=== PATIENT | female | born 1970 | race Caucasian/White ===

== ENCOUNTER 2024-04-21 00:34 | Inpatient (IN) | payer MEDICARE, MEDICAID ==
[~2024-04-21] VITALS: Ht 152.4 cm; Wt 73.6 kg
[2024-04-21] VITALS (10 sets, daily range): BP systolic 128–140; BP diastolic 59–63; TEMP 96.1–98.2; O2SAT 90–98
[2024-04-21] MEDS ORDERED: BUPR-597 PO (01:00)
[2024-04-21] MEDS ORDERED: ROPI1TAB73 PO (01:00)
[2024-04-21] MEDS ORDERED: CILO100T3 PO (01:00)
[2024-04-21] MEDS ORDERED: HUMA100I5 SC (01:00)
[2024-04-21] MEDS ORDERED: DULO1CAP6 PO (01:00)
[2024-04-21] MEDS ORDERED: POTA-150 PO (01:00)
[2024-04-21] MEDS ORDERED: ECOT81TA5 PO (01:00)
[2024-04-21] MEDS ORDERED: FENO160T10 PO (01:00)
[2024-04-21] MEDS ORDERED: LEVOTAB10 PO (01:00)
[2024-04-21] MEDS ORDERED: NEUR300C PO (01:00)
[2024-04-21] MEDS ORDERED: TOUJ300I2 SC (01:00)
[2024-04-21] MEDS ORDERED: ATOR80TA59 PO (01:00)
[2024-04-21] MEDS ORDERED: NEUR600T PO (01:00)
[2024-04-21] MEDS ORDERED: LISI5TAB11 PO (01:00)
[2024-04-21] MEDS ORDERED: EZET10TA21 PO (01:00)
[2024-04-21 01:33] LABS: BASO # 0.1 10^3/uL (0.0-0.2); BASO % 0.9 % (0.0-1.0); EOS # 0.1 10^3/uL (0.0-0.5); EOS % 1.2 % (0.0-3.0); HEMATOCRIT 38.6 % (36.0-47.0); HEMOGLOBIN 13.5 g/dl (12.0-15.5); LYMPH # 1.9 10^3/uL (1.5-5.0); LYMPH % 27.9 % (24.0-44.0); MEAN CORPUSCULAR HEMOGLOBIN 30.3 pg (27.0-33.0); MEAN CORPUSCULAR VOLUME 86.7 fl (80.0-96.0); MONO # 0.6 10^3/uL (0.0-0.8); MONO % 8.8 % (2.0-8.0); NEUTROPHILS # 4.2 10^3/uL (1.5-8.5); NEUTROPHILS % 60.5 % (36.0-66.0); PLATELET COUNT, AUTOMATED 469 10^3/uL (150-450); RED BLOOD COUNT 4.45 10^6/uL (4.00-5.40); WHITE BLOOD COUNT 6.9 10^3/uL (4.0-10.0)
[2024-04-21 01:59] LABS: LIPASE 160 U/L (12-53)
[2024-04-21 01:59] LABS: VENOUS BASE EXCESS 1.7 (-2.0-2.0); VENOUS HCO3 27.4 MMOL/L (23.0-27.0); VENOUS O2 SATURATION 63.3 % (60.0-80.0); VENOUS PARTIAL PRESSURE CO2 47.3 mmHg (38.0-50.0); VENOUS PH 7.381 UNITS (7.330-7.430); VENOUS STANDARD HCO3 25.1 MMOL/L; VENOUS TOTAL CO2 28.9 MMOL/L (24.0-28.0)
[2024-04-21] MEDS: KETOROLAC 30 MG/ML 1ML VIAL IV ONE (02:06)
[2024-04-21] MEDS: ONDANSETRON 4MG 2ML VIAL IV ONE (02:06)
[2024-04-21 02:19] LABS: ALBUMIN 2.6 G/DL (3.2-5.2); ALKALINE PHOSPHATASE 123 U/L (35-104); ALT/SGPT 16 U/L (7.0-40); AST/SGOT < 8 U/L (<34); BILIRUBIN,DIRECT < 0.1 MG/DL (<0.4); BILIRUBIN,TOTAL 0.2 MG/DL (0.3-1.2); BLOOD UREA NITROGEN 10 MG/DL (9-23); CALCIUM LEVEL 9.4 MG/DL (8.5-10.1); CARBON DIOXIDE LEVEL 26 MMOL/L (20-31); CHLORIDE LEVEL 94 MMOL/L (98-107); CREATININE FOR GFR 0.34 MG/DL (0.55-1.30); GLOMERULAR FILTRATION RATE > 60.0 (>51); POTASSIUM SERUM 3.8 MMOL/L (3.5-5.1); SODIUM LEVEL 128 MMOL/L (136-145); TOTAL PROTEIN 7.1 G/DL (5.7-8.2)
[2024-04-21] MEDS: NS 1,000 ML IV ONE (02:20)
[2024-04-21 02:26] LABS: OSMOLALITY SERUM 319 MOSM/KG (275-295)
[2024-04-21 02:30] LABS: CK-MB VALUE MASS < 1.0 NG/ML (<3.6)
[2024-04-21 02:35] LABS: CPK CREATINE PHOSPHOKINASE 35 U/L (34-145); MB/CK RELATIVE INDEX 2.85 (< OR =4)
[2024-04-21 02:36] LABS: GLUCOSE, FASTING 519 MG/DL (60-100)
[2024-04-21] MEDS ORDERED: ISOVUE-370 76% 100ML VIAL As Ordered ONE (02:39)
[2024-04-21] MEDS: POTASSIUM CHLORIDE 10MEQ SR TABLET PO ONE (02:44)
[2024-04-21] MEDS: HumuLIN R (REGULAR) INSULIN (NovoLIN R) **100U/ML** PER UNIT IV ONE (02:44)
[2024-04-21 02:45] LABS: ACETONE/KETONE 0.33 MMOL/L (0.02-0.27)
[2024-04-21 03:09] LABS: HEMOGLOBIN A1c > 14.0 % (4.0-6.0)
[2024-04-21] MEDS: methylPREDNISolone 125MG 2ML VIAL IV ONE (03:10)
[2024-04-21] MEDS: diphenhydrAMINE 50MG/ML VIAL IV ONE (03:10)
[2024-04-21] MEDS ORDERED: ASPI81CH33 PO (05:01)
[2024-04-21] MEDS ORDERED: HOME MED LIST COMPLETE! XX SCH (05:05)
[2024-04-21] MEDS ORDERED: DEXTROSE 50% 50ML SYRINGE IV PRN ×2 (05:35→08:45)
[2024-04-21] MEDS ORDERED: GLUCAGON INJ 1MG VIAL SC PRN ×2 (05:35→08:45)
[2024-04-21] MEDS ORDERED: MAALOX 30 ML SUSP *UDC PO PRN (05:35)
[2024-04-21] MEDS ORDERED: ACETAMINOPHEN 325 MG TAB PO PRN (05:35)
[2024-04-21] MEDS ORDERED: GLUCOSE 4 GM CHEW PO PRN ×2 (05:35→08:45)
[2024-04-21] MEDS: INSULIN LISPRO (NovoLOG) PER UNIT SC SCH ×4 (06:13→20:16)
[2024-04-21] MEDS: KCL 20MEQ in NS 1000ML 1,000 ML IV SCH (06:13)
[2024-04-21 06:27] LABS: CHOLESTEROL LEVEL 974 MG/DL (<200); CHOLESTEROL RISK RATIO 28.56 (<5); HDL CHOLESTEROL 34.1 MG/DL (>40); NON-HDL-C 939.9 MG/DL; TRIGLYCERIDES LEVEL 3587 MG/DL (<150)
[2024-04-21 08:03] LABS: BASO % 0.6 % (0.0-1.0); EOS % 0.2 % (0.0-3.0); HEMATOCRIT 36.4 % (36.0-47.0); HEMOGLOBIN 12.7 g/dl (12.0-15.5); LYMPH # 0.8 10^3/uL (1.5-5.0); MEAN CORPUSCULAR HEMOGLOBIN 30.2 pg (27.0-33.0); MEAN CORPUSCULAR HGB CONC 34.9 g/dl (32.0-36.5); MEAN CORPUSCULAR VOLUME 86.7 fl (80.0-96.0); MONO # 0.1 10^3/uL (0.0-0.8); MONO % 1.5 % (2.0-8.0); NEUTROPHILS # 5.6 10^3/uL (1.5-8.5); NEUTROPHILS % 84.5 % (36.0-66.0); PLATELET COUNT, AUTOMATED 392 10^3/uL (150-450); WHITE BLOOD COUNT 6.7 10^3/uL (4.0-10.0)
[2024-04-21 08:40] LABS: BLOOD UREA NITROGEN 9 MG/DL (9-23); CALCIUM LEVEL 8.7 MG/DL (8.5-10.1); CARBON DIOXIDE LEVEL 24 MMOL/L (20-31); CHLORIDE LEVEL 100 MMOL/L (98-107); CREATININE FOR GFR 0.29 MG/DL (0.55-1.30); GLOMERULAR FILTRATION RATE > 60.0 (>51); GLUCOSE, FASTING 323 MG/DL (60-100); SODIUM LEVEL 131 MMOL/L (136-145)
[2024-04-21] MEDS: NS 1,000 ML IV SCH (08:45)
[2024-04-21] MEDS: DOCUSATE SODIUM 100MG CAPSULE PO SCH (09:00)
[2024-04-21] MEDS: LEVEMIR (INSULIN DETEMIR) 1 UNITS/0.01ML SC SCH (10:03)
[2024-04-21] MEDS: KETOROLAC 30 MG/ML 1ML VIAL IV PRN (10:04)
[2024-04-21] MEDS: ONDANSETRON 4MG 2ML VIAL IV PRN (10:04)
[2024-04-21] MEDS: EZETIMIBE 10MG TABLET (ZETIA) PO SCH (10:04)
[2024-04-21] MEDS: ASPIRIN 81MG ENTERIC TABLET PO SCH (10:06)
[2024-04-21] MEDS: GABAPENTIN 300 MG CAP PO SCH (10:06)
[2024-04-21] MEDS: ENOXAPARIN 40MG/0.4ML SYRINGE (J1650 PER 10MG) SC SCH (10:07)
[2024-04-21] MEDS: METOCLOPRAMIDE INJ 10MG/2ML VIAL IV SCH (12:34)
[2024-04-21] MEDS: FENOFIBRATE 145MG TABLET (TRICOR) PO SCH (14:34)
[2024-04-21] MEDS: ATORVASTATIN 20 MG TAB PO SCH (20:15)
[2024-04-22] VITALS (19 sets, daily range): BP systolic 130–152; BP diastolic 62–70; TEMP 97.2–97.7; O2SAT 79–98
[2024-04-22 06:01] LABS: HEMATOCRIT 36.2 % (36.0-47.0); HEMOGLOBIN 12.1 g/dl (12.0-15.5); MEAN CORPUSCULAR HEMOGLOBIN 29.9 pg (27.0-33.0); MEAN CORPUSCULAR HGB CONC 33.4 g/dl (32.0-36.5); MEAN CORPUSCULAR VOLUME 89.4 fl (80.0-96.0); PLATELET COUNT, AUTOMATED 382 10^3/uL (150-450); RED BLOOD COUNT 4.05 10^6/uL (4.00-5.40); WHITE BLOOD COUNT 8.8 10^3/uL (4.0-10.0)
[2024-04-22 06:25] LABS: LIPASE 134 U/L (12-53)
[2024-04-22 07:02] LABS: ALBUMIN 2.5 G/DL (3.2-5.2); ALKALINE PHOSPHATASE 97 U/L (35-104); ALT/SGPT 13 U/L (7.0-40); AST/SGOT < 8 U/L (<34); BILIRUBIN,DIRECT < 0.1 MG/DL (<0.4); BILIRUBIN,TOTAL 0.3 MG/DL (0.3-1.2); BLOOD UREA NITROGEN 13 MG/DL (9-23); CALCIUM LEVEL 9.1 MG/DL (8.5-10.1); CARBON DIOXIDE LEVEL 26 MMOL/L (20-31); CHLORIDE LEVEL 104 MMOL/L (98-107); CHOLESTEROL LEVEL 718 MG/DL (<200); CREATININE FOR GFR 0.42 MG/DL (0.55-1.30); GLOMERULAR FILTRATION RATE > 60.0 (>51); GLUCOSE, FASTING 219 MG/DL (60-100); HDL CHOLESTEROL 40.1 MG/DL (>40); MAGNESIUM LEVEL 1.8 MG/DL (1.8-2.4); NON-HDL-C 677.9 MG/DL; POTASSIUM SERUM 3.7 MMOL/L (3.5-5.1); SODIUM LEVEL 136 MMOL/L (136-145); TOTAL PROTEIN 6.4 G/DL (5.7-8.2); TRIGLYCERIDES LEVEL 2246 MG/DL (<150)
[2024-04-22] MEDS ORDERED: EZET10TA58 PO (10:17)
[2024-04-22] MEDS ORDERED: POTA10CA70 PO (10:17)
[2024-04-22] MEDS ORDERED: GABA-1172 PO (10:17)
[2024-04-22] MEDS ORDERED: BUPR-597 PO (10:17)
[2024-04-22] MEDS ORDERED: INSUHUMDS SC (10:17)
[2024-04-22] MEDS ORDERED: TOUJ1.2I SC (10:17)
[2024-04-22] MEDS ORDERED: ROPI1TAB73 PO (10:17)
[2024-04-22] MEDS ORDERED: HOME MED LIST COMPLETE! XX SCH (10:20)
[2024-04-22] MEDS: FLUCONAZOLE 50MG TABLET PO ONE (11:26)
[2024-04-22] MEDS ORDERED: GLUCOSE 4 GM CHEW PO PRN (11:40)
[2024-04-22] MEDS ORDERED: DEXTROSE 50% 50ML SYRINGE IV PRN (11:40)
[2024-04-22] MEDS ORDERED: GLUCAGON INJ 1MG VIAL SC PRN (11:40)
[2024-04-22] MEDS: D5W 1,000 ML IV SCH (12:18)
[2024-04-22] MEDS: INSULIN REGULAR IN 0.9 % NACL 100 UNIT in IV 1 EA IV SCH (12:34)
[2024-04-22 13:43] LABS: BLOOD UREA NITROGEN 17 MG/DL (9-23); CALCIUM LEVEL 8.6 MG/DL (8.5-10.1); CARBON DIOXIDE LEVEL 26 MMOL/L (20-31); CHLORIDE LEVEL 105 MMOL/L (98-107); CREATININE FOR GFR 0.43 MG/DL (0.55-1.30); GLOMERULAR FILTRATION RATE > 60.0 (>51); GLUCOSE, FASTING 158 MG/DL (60-100); PHOSPHORUS LEVEL 2.5 MG/DL (2.5-4.9); POTASSIUM SERUM 3.2 MMOL/L (3.5-5.1); SODIUM LEVEL 138 MMOL/L (136-145)
[2024-04-22] MEDS: KCL 10MEQ/100ML SWI (KRUN) 10 MEQ in IV 1 EA IV SCH (15:23)
[2024-04-22 20:23] LABS: BLOOD UREA NITROGEN 13 MG/DL (9-23); CALCIUM LEVEL 8.9 MG/DL (8.5-10.1); CARBON DIOXIDE LEVEL 21 MMOL/L (20-31); CHLORIDE LEVEL 105 MMOL/L (98-107); CHOLESTEROL LEVEL 636 MG/DL (<200); CHOLESTEROL RISK RATIO 15.86 (<5); CREATININE FOR GFR 0.31 MG/DL (0.55-1.30); GLOMERULAR FILTRATION RATE > 60.0 (>51); GLUCOSE, FASTING 121 MG/DL (60-100); HDL CHOLESTEROL 40.1 MG/DL (>40); NON-HDL-C 595.9 MG/DL; PHOSPHORUS LEVEL 2.5 MG/DL (2.5-4.9); POTASSIUM SERUM 4.5 MMOL/L (3.5-5.1); SODIUM LEVEL 136 MMOL/L (136-145); TRIGLYCERIDES LEVEL 2610 MG/DL (<150)
[2024-04-23] VITALS (8 sets, daily range): BP systolic 121–145; BP diastolic 58–66; TEMP 97.4–98.6; O2SAT 87–99
[2024-04-23 01:34] LABS: BLOOD UREA NITROGEN 8 MG/DL (9-23); CALCIUM LEVEL 8.8 MG/DL (8.5-10.1); CARBON DIOXIDE LEVEL 29 MMOL/L (20-31); CHLORIDE LEVEL 107 MMOL/L (98-107); CREATININE FOR GFR 0.42 MG/DL (0.55-1.30); GLOMERULAR FILTRATION RATE > 60.0 (>51); GLUCOSE, FASTING 95 MG/DL (60-100); PHOSPHORUS LEVEL 2.5 MG/DL (2.5-4.9); POTASSIUM SERUM 3.6 MMOL/L (3.5-5.1); SODIUM LEVEL 141 MMOL/L (136-145)
[2024-04-23 07:35] LABS: BLOOD UREA NITROGEN < 5 MG/DL (9-23); CARBON DIOXIDE LEVEL 32 MMOL/L (20-31); CHLORIDE LEVEL 106 MMOL/L (98-107); CHOLESTEROL LEVEL 550 MG/DL (<200); CHOLESTEROL RISK RATIO 15.44 (<5); CREATININE FOR GFR 0.39 MG/DL (0.55-1.30); GLOMERULAR FILTRATION RATE > 60.0 (>51); GLUCOSE, FASTING 110 MG/DL (60-100); HDL CHOLESTEROL 35.6 MG/DL (>40); NON-HDL-C 514.4 MG/DL; PHOSPHORUS LEVEL 2.4 MG/DL (2.5-4.9); POTASSIUM SERUM 3.5 MMOL/L (3.5-5.1); SODIUM LEVEL 139 MMOL/L (136-145); TRIGLYCERIDES LEVEL 1620 MG/DL (<150)
[2024-04-23] MEDS: INSULIN IV RATE CHANGE DOCUMENTATION ML/HR XX SCH (08:35)
[2024-04-23] MEDS: D10W 1,000 ML IV SCH (08:35)
[2024-04-23] MEDS: NEUTRA-PHOS 1.5 GM PACKET PO SCH (10:48)
[2024-04-23] MEDS: POTASSIUM CHLORIDE 10MEQ SR TABLET PO ONE (10:48)
[2024-04-23 15:12] LABS: BLOOD UREA NITROGEN < 5 MG/DL (9-23); CALCIUM LEVEL 9.2 MG/DL (8.5-10.1); CARBON DIOXIDE LEVEL 25 MMOL/L (20-31); CHLORIDE LEVEL 106 MMOL/L (98-107); GLOMERULAR FILTRATION RATE > 60.0 (>51); GLUCOSE, FASTING 125 MG/DL (60-100); POTASSIUM SERUM 4.1 MMOL/L (3.5-5.1); SODIUM LEVEL 140 MMOL/L (136-145)
[2024-04-23 21:04] LABS: BLOOD UREA NITROGEN 6 MG/DL (9-23); CALCIUM LEVEL 9.9 MG/DL (8.5-10.1); CARBON DIOXIDE LEVEL 30 MMOL/L (20-31); CHLORIDE LEVEL 101 MMOL/L (98-107); CREATININE FOR GFR 0.52 MG/DL (0.55-1.30); GLOMERULAR FILTRATION RATE > 60.0 (>51); GLUCOSE, FASTING 203 MG/DL (60-100); POTASSIUM SERUM 4.4 MMOL/L (3.5-5.1); SODIUM LEVEL 139 MMOL/L (136-145); TRIGLYCERIDES LEVEL 1954 MG/DL (<150)
[2024-04-24] VITALS: BP 130/61; TEMP 98; O2SAT 100
[2024-04-24 04:00] VITALS: BP 116/59; TEMP 97.9; O2SAT 98
[2024-04-24 05:09] LABS: BASO # 0.1 10^3/uL (0.0-0.2); BASO % 0.8 % (0.0-1.0); EOS # 0.1 10^3/uL (0.0-0.5); EOS % 1.5 % (0.0-3.0); HEMATOCRIT 37.3 % (36.0-47.0); HEMOGLOBIN 12.3 g/dl (12.0-15.5); LYMPH # 2.6 10^3/uL (1.5-5.0); LYMPH % 35.1 % (24.0-44.0); MEAN CORPUSCULAR HEMOGLOBIN 29.6 pg (27.0-33.0); MEAN CORPUSCULAR VOLUME 89.9 fl (80.0-96.0); MONO # 0.9 10^3/uL (0.0-0.8); MONO % 12.4 % (2.0-8.0); NEUTROPHILS # 3.6 10^3/uL (1.5-8.5); NEUTROPHILS % 49.4 % (36.0-66.0); PLATELET COUNT, AUTOMATED 366 10^3/uL (150-450); RED BLOOD COUNT 4.15 10^6/uL (4.00-5.40); WHITE BLOOD COUNT 7.4 10^3/uL (4.0-10.0)
[2024-04-24 05:54] LABS: ALBUMIN 2.3 G/DL (3.2-5.2); ALKALINE PHOSPHATASE 87 U/L (35-104); ALT/SGPT 12 U/L (7.0-40); AST/SGOT < 8 U/L (<34); BILIRUBIN,TOTAL 0.4 MG/DL (0.3-1.2); BLOOD UREA NITROGEN 6 MG/DL (9-23); CALCIUM LEVEL 9.7 MG/DL (8.5-10.1); CARBON DIOXIDE LEVEL 32 MMOL/L (20-31); CHLORIDE LEVEL 103 MMOL/L (98-107); CHOLESTEROL LEVEL 574 MG/DL (<200); CHOLESTEROL RISK RATIO 15.64 (<5); CREATININE FOR GFR 0.43 MG/DL (0.55-1.30); GLOMERULAR FILTRATION RATE > 60.0 (>51); GLUCOSE, FASTING 150 MG/DL (60-100); HDL CHOLESTEROL 36.7 MG/DL (>40); NON-HDL-C 537.3 MG/DL; POTASSIUM SERUM 4.5 MMOL/L (3.5-5.1); SODIUM LEVEL 139 MMOL/L (136-145); TOTAL PROTEIN 6.3 G/DL (5.7-8.2); TRIGLYCERIDES LEVEL 1418 MG/DL (<150)
[2024-04-24 08:15] VITALS: BP 120/56; TEMP 97.6; O2SAT 97
[2024-04-24 12:06] VITALS: BP 126/58; TEMP 97.2; O2SAT 93
[2024-04-24 16:11] VITALS: BP 116/56; TEMP 97.4; O2SAT 94
[2024-04-24 20:00] VITALS: BP 124/61; TEMP 98.2; O2SAT 96
[2024-04-24] MEDS: KETOCONAZOLE 2% CREAM TOP SCH (21:00)
[2024-04-25] VITALS: BP 142/65; TEMP 97.9; O2SAT 96
[2024-04-25] MEDS: KETOROLAC 30 MG/ML 1ML VIAL IV PRN (03:08)
[2024-04-25 04:00] VITALS: BP 164/73; TEMP 97.9; O2SAT 95
[2024-04-25 06:03] LABS: BASO # 0.1 10^3/uL (0.0-0.2); BASO % 0.8 % (0.0-1.0); EOS # 0.2 10^3/uL (0.0-0.5); EOS % 2.1 % (0.0-3.0); HEMATOCRIT 35.9 % (36.0-47.0); LYMPH # 3.5 10^3/uL (1.5-5.0); LYMPH % 38.7 % (24.0-44.0); MEAN CORPUSCULAR HEMOGLOBIN 29.8 pg (27.0-33.0); MEAN CORPUSCULAR HGB CONC 33.4 g/dl (32.0-36.5); MEAN CORPUSCULAR VOLUME 89.1 fl (80.0-96.0); MONO % 11.5 % (2.0-8.0); NEUTROPHILS # 4.2 10^3/uL (1.5-8.5); NEUTROPHILS % 46.1 % (36.0-66.0); PLATELET COUNT, AUTOMATED 346 10^3/uL (150-450); RED BLOOD COUNT 4.03 10^6/uL (4.00-5.40)
[2024-04-25 06:31] LABS: ALBUMIN 2.4 G/DL (3.2-5.2); ALKALINE PHOSPHATASE 92 U/L (35-104); ALT/SGPT 14 U/L (7.0-40); AST/SGOT < 8 U/L (<34); BILIRUBIN,TOTAL 0.3 MG/DL (0.3-1.2); BLOOD UREA NITROGEN 14 MG/DL (9-23); CALCIUM LEVEL 9.8 MG/DL (8.5-10.1); CARBON DIOXIDE LEVEL 28 MMOL/L (20-31); CHLORIDE LEVEL 103 MMOL/L (98-107); CHOLESTEROL LEVEL 458 MG/DL (<200); CHOLESTEROL RISK RATIO 12.05 (<5); CREATININE FOR GFR 0.49 MG/DL (0.55-1.30); GLOMERULAR FILTRATION RATE > 60.0 (>51); GLUCOSE, FASTING 85 MG/DL (60-100); POTASSIUM SERUM 3.8 MMOL/L (3.5-5.1); SODIUM LEVEL 137 MMOL/L (136-145); TOTAL PROTEIN 6.2 G/DL (5.7-8.2); TRIGLYCERIDES LEVEL 931 MG/DL (<150)
[2024-04-25 07:41] VITALS: BP 157/67; TEMP 97.8; O2SAT 96
[2024-04-25] MEDS ORDERED: VENLAFAXINE 37.5 MG TAB PO SCH (09:00)
[2024-04-25] MEDS ORDERED: LEVEMIR (INSULIN DETEMIR) 1 UNITS/0.01ML SC SCH (09:00)
[2024-04-25] MEDS ORDERED: DEXTROSE 50% 50ML SYRINGE IV PRN (09:55)
[2024-04-25] MEDS ORDERED: GLUCAGON INJ 1MG VIAL SC PRN (09:55)
[2024-04-25] MEDS ORDERED: GLUCOSE 4 GM CHEW PO PRN (09:55)
[2024-04-25 11:30] VITALS: BP 138/65; TEMP 97.6; O2SAT 97
[2024-04-25] MEDS: INSULIN LISPRO (NovoLOG) PER UNIT SC SCH ×3 (12:53→20:57)
[2024-04-25] MEDS: buPROPion **XL** TABLET 150MG (WELLBUTRIN XL) PO SCH (14:42)
[2024-04-25] MEDS: DULoxetine 30MG CAPSULE (CYMBALTA) PO SCH (14:43)
[2024-04-25 18:10] VITALS: BP 138/80; TEMP 97.3; O2SAT 96
[2024-04-25] MEDS: MOM 30ML SUSPENSION UDC PO PRN (18:16)
[2024-04-25 20:00] VITALS: BP 141/79; TEMP 97; O2SAT 97
[2024-04-25] MEDS: LEVEMIR (INSULIN DETEMIR) 1 UNITS/0.01ML SC SCH (21:04)
[2024-04-26] VITALS: BP 148/75; TEMP 97; O2SAT 97
[2024-04-26 04:00] VITALS: BP 132/64; TEMP 97.2; O2SAT 95
[2024-04-26 05:54] LABS: BASO # 0.1 10^3/uL (0.0-0.2); BASO % 0.8 % (0.0-1.0); EOS # 0.1 10^3/uL (0.0-0.5); EOS % 1.4 % (0.0-3.0); HEMATOCRIT 36.7 % (36.0-47.0); HEMOGLOBIN 12.1 g/dl (12.0-15.5); LYMPH # 2.1 10^3/uL (1.5-5.0); MEAN CORPUSCULAR HEMOGLOBIN 29.4 pg (27.0-33.0); MEAN CORPUSCULAR VOLUME 89.1 fl (80.0-96.0); MONO # 1.1 10^3/uL (0.0-0.8); MONO % 11.2 % (2.0-8.0); NEUTROPHILS # 6.4 10^3/uL (1.5-8.5); NEUTROPHILS % 65.1 % (36.0-66.0); PLATELET COUNT, AUTOMATED 360 10^3/uL (150-450); RED BLOOD COUNT 4.12 10^6/uL (4.00-5.40); WHITE BLOOD COUNT 9.9 10^3/uL (4.0-10.0)
[2024-04-26 06:14] LABS: ALBUMIN 2.4 G/DL (3.2-5.2); ALKALINE PHOSPHATASE 93 U/L (35-104); ALT/SGPT 17 U/L (7.0-40); AST/SGOT 11 U/L (<34); BILIRUBIN,TOTAL 0.4 MG/DL (0.3-1.2); BLOOD UREA NITROGEN 25 MG/DL (9-23); CALCIUM LEVEL 9.9 MG/DL (8.5-10.1); CARBON DIOXIDE LEVEL 29 MMOL/L (20-31); CHLORIDE LEVEL 102 MMOL/L (98-107); CREATININE FOR GFR 0.58 MG/DL (0.55-1.30); GLOMERULAR FILTRATION RATE > 60.0 (>51); GLUCOSE, FASTING 244 MG/DL (60-100); MAGNESIUM LEVEL 1.7 MG/DL (1.8-2.4); POTASSIUM SERUM 4.4 MMOL/L (3.5-5.1); SODIUM LEVEL 136 MMOL/L (136-145); TOTAL PROTEIN 6.2 G/DL (5.7-8.2); TRIGLYCERIDES LEVEL 802 MG/DL (<150)
[2024-04-26 08:00] VITALS: BP 123/61; TEMP 97.2; O2SAT 98
[2024-04-26 08:48] VITALS: BP 122/59
[2024-04-26] MEDS: MAG SULF 1GM/100ML (MAG RUN) 1 GM in IV 1 EA IV ONE (08:49)
[2024-04-26] MEDS: VENLAFAXINE 37.5 MG TAB PO SCH (08:49)
[2024-04-26] MEDS ORDERED: LISI10TA22 PO (09:40)
[2024-04-26] MEDS ORDERED: DEXC1MIS4 XX (09:40)
[2024-04-26] MEDS ORDERED: GABA-1172 PO (09:40)
[2024-04-26] MEDS ORDERED: INSUHUMDS SC ×2 (09:40)
[2024-04-26] MEDS ORDERED: VENL37TA PO (09:40)
[2024-04-26] MEDS ORDERED: FENO160T10 PO (09:40)
[2024-04-26] MEDS ORDERED: EZET10TA58 PO (09:40)
[2024-04-26] MEDS ORDERED: TOUJ1.2I SC (09:40)
[2024-04-26] MEDS ORDERED: ATOR80TA59 PO (09:40)
[2024-04-26] MEDS ORDERED: ASPI81CH33 PO (09:40)
[2024-04-26] MEDS ORDERED: FARX1TAB3 PO (10:14)
== END 2024-04-26 12:30 | disposition home health service (06) | DRG 637 ==
LOC: M ED 00:34 → M ED INP 05:34 → M PCU 08:55 → M ICU 04-22 11:44 → M MSPAV 04-25 18:06
PROVIDERS: ADMIT Student in an Organized Health Care Education/Training Program; ATTEND Internal Medicine
DX: E11.65 Type 2 diabetes mellitus with hyperglycemia (principal); K85.90 Acute pancreatitis without necrosis or infection, unspecified; E87.1 Hypo-osmolality and hyponatremia; I10 Essential (primary) hypertension; I70.0 Atherosclerosis of aorta; E78.5 Hyperlipidemia, unspecified; I25.10 Atherosclerotic heart disease of native coronary artery without angina pectoris; E11.43 Type 2 diabetes mellitus with diabetic autonomic (poly)neuropathy; K31.84 Gastroparesis; F32.A Depression, unspecified; Z95.1 Presence of aortocoronary bypass graft; E83.39 Other disorders of phosphorus metabolism; Z79.82 Long term (current) use of aspirin; Z88.8 Allergy status to other drugs, medicaments and biological substances; Z79.4 Long term (current) use of insulin; I25.2 Old myocardial infarction; Z91.148 Patient's other noncompliance with medication regimen for other reason; Z95.2 Presence of prosthetic heart valve; E78.1 Pure hyperglyceridemia

== ENCOUNTER → 2024-05-29 | Outpatient (REF) | payer MEDICARE, MEDICAID ==
[~2024-05-29] MED LIST: ASPI81CH33 PO; ATOR80TA59 PO; BUPR-597 PO; CILO100T3 PO; DEXC1MIS4 XX; DULO1CAP6 PO; ECOT81TA5 PO; EZET10TA21 PO; EZET10TA58 PO; FARX1TAB3 PO; FENO160T10 PO; GABA-1172 PO; HUMA100I5 SC; INSUHUMDS SC; LEVOTAB10 PO; LISI10TA22 PO; LISI5TAB11 PO; NEUR300C PO; NEUR600T PO; POTA-150 PO; POTA10CA70 PO; ROPI1TAB73 PO; TOUJ1.2I SC; TOUJ300I2 SC; VENL37TA PO
[2024-05-29 17:57] LABS: CREATININE, URINE 62.9 MG/DL
[2024-05-29 17:58] LABS: MALB URINE SIEMENS < 3.0 MG/L
[2024-05-29 18:03] LABS: LIPASE 92 U/L (12-53)
[2024-05-29 18:05] LABS: ALBUMIN 3.4 G/DL (3.2-5.2); ALKALINE PHOSPHATASE 94 U/L (35-104); ALT/SGPT 18 U/L (7.0-40); AST/SGOT < 8 U/L (<34); BILIRUBIN,TOTAL 0.4 MG/DL (0.3-1.2); BLOOD UREA NITROGEN 18 MG/DL (9-23); CALCIUM LEVEL 10.2 MG/DL (8.5-10.1); CARBON DIOXIDE LEVEL 28 MMOL/L (20-31); CHLORIDE LEVEL 103 MMOL/L (98-107); CHOLESTEROL LEVEL 209 MG/DL (<200); CHOLESTEROL RISK RATIO 4.71 (<5); CREATININE FOR GFR 0.53 MG/DL (0.55-1.30); GLOMERULAR FILTRATION RATE > 60.0 (>51); GLUCOSE, FASTING 257 MG/DL (60-100); HDL CHOLESTEROL 44.3 MG/DL (>40); LDL CHOLESTEROL 96.3 MG/DL (<100); NON-HDL-C 164.7 MG/DL; POTASSIUM SERUM 3.8 MMOL/L (3.5-5.1); SODIUM LEVEL 142 MMOL/L (136-145); TOTAL 25(OH) VITAMIN D 8.2 NG/ML (20.0-100.0); TOTAL PROTEIN 7.4 G/DL (5.7-8.2); TRIGLYCERIDES LEVEL 342 MG/DL (<150)
[2024-05-29 18:34] LABS: HIV 1&2 SCREEN NEGATIVE (NEGATIVE)
[2024-05-29 18:42] LABS: HEPATITIS C VIRUS ABY INDEX < 0.02 INDEX (<0.8)
[2024-05-29 19:56] LABS: Trichomonas vaginalis (AMP) NOT DETECTED (NEGATIVE)
[2024-05-29 20:20] LABS: GC DNA AMPLIFICATION NEGATIVE (NEGATIVE)
== END ==
LOC: M LAB REF 16:21
PROVIDERS: ATTEND Physician Assistant
DX: E11.21 Type 2 diabetes mellitus with diabetic nephropathy (principal); A64 Unspecified sexually transmitted disease; Z11.3 Encounter for screening for infections with a predominantly sexual mode of transmission; E78.2 Mixed hyperlipidemia; E55.9 Vitamin D deficiency, unspecified

== ENCOUNTER → 2025-01-01 | Outpatient (REF) | payer MEDICARE, MEDICAID ==
[~2025-01-01] MED LIST changes: -BUPR-597 PO; +BUPR-766 PO
[2025-01-01 18:06] LABS: BASO # 0.1 10^3/uL (0.0-0.2); BASO % 0.7 % (0.0-1.0); EOS # 0.2 10^3/uL (0.0-0.5); EOS % 1.8 % (0.0-3.0); LYMPH # 2.6 10^3/uL (1.5-5.0); LYMPH % 31.5 % (24.0-44.0); MONO # 0.6 10^3/uL (0.0-0.8); MONO % 6.9 % (2.0-8.0); NEUTROPHILS # 4.9 10^3/uL (1.5-8.5); NEUTROPHILS % 58.5 % (36.0-66.0); PLATELET COUNT, AUTOMATED 440 10^3/uL (150-450)
[2025-01-01 18:29] LABS: ALT/SGPT 22 U/L (7.0-40); AST/SGOT 16 U/L (<34); CALCIUM LEVEL 9.4 MG/DL (8.5-10.1); CARBON DIOXIDE LEVEL 27 MMOL/L (20-31); CHLORIDE LEVEL 107 MMOL/L (98-107); CHOLESTEROL LEVEL 255 MG/DL (<200); CHOLESTEROL RISK RATIO 5.17 (<5); CREATININE FOR GFR 0.76 MG/DL (0.55-1.30); GLOMERULAR FILTRATION RATE > 90.0 (>51); LDL CHOLESTEROL 131.3 MG/DL (<100); NON-HDL-C 205.7 MG/DL; POTASSIUM SERUM 4.6 MMOL/L (3.5-5.1); SODIUM LEVEL 146 MMOL/L (136-145); TRIGLYCERIDES LEVEL 372 MG/DL (<150)
== END ==
LOC: M LAB REF 17:25
PROVIDERS: ATTEND Physician Assistant
DX: E11.21 Type 2 diabetes mellitus with diabetic nephropathy (principal); E78.2 Mixed hyperlipidemia; R10.9 Unspecified abdominal pain

== ENCOUNTER → 2025-03-12 | Outpatient (REF) | payer MEDICARE, MEDICAID ==
[~2025-03-12] MED LIST changes: -EZET10TA21 PO; +EZET10TA57 PO
[2025-03-12 19:22] LABS: BASO # 0.1 10^3/uL (0.0-0.2); BASO % 0.9 % (0.0-1.0); EOS # 0.3 10^3/uL (0.0-0.5); EOS % 3.1 % (0.0-3.0); LYMPH # 2.1 10^3/uL (1.5-5.0); LYMPH % 24.6 % (24.0-44.0); MONO # 0.5 10^3/uL (0.0-0.8); MONO % 6.1 % (2.0-8.0); NEUTROPHILS # 5.7 10^3/uL (1.5-8.5); NEUTROPHILS % 64.8 % (36.0-66.0); PLATELET COUNT, AUTOMATED 438 10^3/uL (150-450)
[2025-03-12 19:27] LABS: ALT/SGPT 27 U/L (7.0-40); AST/SGOT 14 U/L (<34); CALCIUM LEVEL 9.5 MG/DL (8.5-10.1); CARBON DIOXIDE LEVEL 31 MMOL/L (20-31); CHLORIDE LEVEL 96 MMOL/L (98-107); CHOLESTEROL LEVEL 395 MG/DL (<200); CHOLESTEROL RISK RATIO 7.38 (<5); CREATININE FOR GFR 0.77 MG/DL (0.55-1.30); GLOMERULAR FILTRATION RATE > 90.0 (>51); NON-HDL-C 341.5 MG/DL; POTASSIUM SERUM 3.4 MMOL/L (3.5-5.1); SODIUM LEVEL 137 MMOL/L (136-145); TRIGLYCERIDES LEVEL 878 MG/DL (<150)
== END ==
LOC: M LAB REF 11:20
PROVIDERS: ATTEND Physician Assistant
DX: I50.9 Heart failure, unspecified (principal); J18.9 Pneumonia, unspecified organism; R10.9 Unspecified abdominal pain; E78.2 Mixed hyperlipidemia

== ENCOUNTER → 2025-04-21 | Outpatient (CLI) | payer MEDICARE, MEDICAID ==
[2025-04-21 15:16] LABS: PLATELET COUNT, AUTOMATED 352 10^3/uL (150-450)
[2025-04-21 15:29] LABS: ALT/SGPT 17 U/L (7.0-40); AST/SGOT 11 U/L (<34); CALCIUM LEVEL 9.4 MG/DL (8.5-10.1); CARBON DIOXIDE LEVEL 26 MMOL/L (20-31); CHLORIDE LEVEL 104 MMOL/L (98-107); CHOLESTEROL LEVEL 146 MG/DL (<200); CHOLESTEROL RISK RATIO 3.43 (<5); CREATININE FOR GFR 0.68 MG/DL (0.55-1.30); GLOMERULAR FILTRATION RATE > 90.0 (>51); LDL CHOLESTEROL 48.9 MG/DL (<100); MAGNESIUM LEVEL 1.9 MG/DL (1.8-2.4); NON-HDL-C 103.5 MG/DL; POTASSIUM SERUM 4.4 MMOL/L (3.5-5.1); SODIUM LEVEL 139 MMOL/L (136-145); TRIGLYCERIDES LEVEL 273 MG/DL (<150)
== END ==
LOC: M PLALAB 13:06
PROVIDERS: ATTEND Internal Medicine Cardiovascular Disease
DX: I50.22 Chronic systolic (congestive) heart failure (principal); I11.0 Hypertensive heart disease with heart failure; I25.10 Atherosclerotic heart disease of native coronary artery without angina pectoris; I49.01 Ventricular fibrillation; G47.33 Obstructive sleep apnea (adult) (pediatric)

== ENCOUNTER → 2025-04-28 | Outpatient (CLI) | payer MEDICARE, MEDICAID | LOC: M SLEEP HO 10:37 | PROVIDERS: ATTEND Internal Medicine Cardiovascular Disease | DX: G47.30 Sleep apnea, unspecified (principal) ==

== ENCOUNTER → 2025-06-10 | Outpatient (CLI) | payer MEDICARE, MEDICAID | LOC: M PLAIMG 12:21 | PROVIDERS: ATTEND Internal Medicine Cardiovascular Disease | DX: I50.22 Chronic systolic (congestive) heart failure (principal); I08.8 Other rheumatic multiple valve diseases ==